=== PATIENT | male | born 1990 | race Asian ===

== ENCOUNTER 2020-04-25 16:34 | Emergency (ER) | payer OTHER ==
[~2020-04-25] VITALS: Ht 170.2 cm; Wt 72.6 kg
[2020-04-25 16:53] VITALS: Ht 170.2 cm; Wt 72.6 kg
[2020-04-25 17:29] LABS: BASOPHIL % 0.4 % (0-2); PLATELET COUNT 231 x10^3mcL (130-400)
[2020-04-25 17:35] LABS: CALCIUM 9.1 mg/dL (8.5-10.1); CARBON DIOXIDE 31.6 mmol/L (21-32); CHLORIDE SERUM 106 mmol/L (98-107); GFR1 > 60 mL/min; GLUCOSE SERUM 95 mg/dL (74-106); POTASSIUM SERUM 3.9 mmol/L (3.5-5.1); SODIUM SERUM 144 mmol/L (136-145)
[2020-04-25 17:40] LABS: ALKALINE PHOSPHATASE 80 U/L (46-116); ALT/SGPT 36 U/L (16-63); AST/SGOT 17 U/L (15-37); BILIRUBIN TOTAL 0.4 mg/dL (0.20-1.00); TOTAL PROTEIN, SERUM 7.4 g/dL (6.4-8.2)
[2020-04-25 18:35] LABS: AMPHETAMINE QUAL UR NONE DETECTED (See below)
[2020-04-25 18:55] VITALS: BP 110/75
== END 2020-04-25 18:55 | disposition home or self-care (01) ==
LOC: ED 16:34
PROVIDERS: Specialist
DX: R20.2 Paresthesia of skin (principal); R07.89 Other chest pain; R61 Generalized hyperhidrosis
CPT/HCPCS: Q0092

== ENCOUNTER 2020-10-12 12:25 | Emergency (ER) | payer OTHER ==
[~2020-10-12] VITALS: Ht 170.2 cm; Wt 71.7 kg
[2020-10-12 14:09] LABS: BASOPHIL % 0.6 % (0.2-1.5); PLATELET COUNT 218 x10^3mcL (152-348); RED CELL DISTRIBUTION WIDTH 12.4 % (12.1-16.2)
[2020-10-12 14:32] LABS: CALCIUM 8.8 mg/dL (8.5-10.1); CARBON DIOXIDE 28.7 mmol/L (21-32); CHLORIDE SERUM 101 mmol/L (98-107); CREATININE SERUM 0.8 mg/dL (0.7-1.3); GFR1 > 60 mL/min; GLUCOSE SERUM 95 mg/dL (74-106); POTASSIUM SERUM 3.7 mmol/L (3.5-5.1); SODIUM SERUM 138 mmol/L (136-145)
[2020-10-12 14:44] LABS: ALBUMIN 4.1 g/dL (3.4-5.0); ALKALINE PHOSPHATASE 82 U/L (46-116); ALT/SGPT 33 U/L (16-63); AMYLASE 54 U/L (25-115); AST/SGOT 22 U/L (15-37); BILIRUBIN TOTAL 0.3 mg/dL (0.20-1.00); LIPASE 157 IU/L (73-393); TOTAL PROTEIN, SERUM 7.5 g/dL (6.4-8.2)
[2020-10-12] MEDS ORDERED: NAPROXEN375 MG PO (15:08)
[2020-10-12] MEDS ORDERED: ULTRAM50 MG PO (15:08)
[2020-10-12 15:30] VITALS: BP 135/68
== END 2020-10-12 15:30 | disposition home or self-care (01) ==
LOC: ED 12:25
PROVIDERS: Emergency Medicine
DX: R10.12 Left upper quadrant pain (principal); E78.00 Pure hypercholesterolemia, unspecified